=== PATIENT | female | born 1995 | race Caucasian/White ===

== ENCOUNTER 2016-10-29 22:24 | Emergency (ER) | payer MEDICAID ==
[~2016-10-29] VITALS: Ht 157.5 cm; Wt 50.0 kg
[2016-10-29 23:33] VITALS: BP 129/77
[2016-10-29] MEDS ORDERED: DIAZEPAM 5 MG TABLET PO ONE (23:45)
[2016-10-29] MEDS ORDERED: KETOROLAC TROMETHAMINE 60 MG/2 ML VIAL IM ONE (23:45)
[2016-10-29] MEDS ORDERED: PredniSONE 20 MG TABLET PO ONE (23:45)
== END 2016-10-30 00:26 | disposition home or self-care (01) ==
LOC: EMS 22:27
DX: M43.6 Torticollis (principal)
CPT/HCPCS: 84703; 96372; 99283; J1885; J7512